=== PATIENT | male | born 1950 ===

== ENCOUNTER 2023-07-24 10:45 | Inpatient (IN) | payer OTHER ==
[2023-07-29] MEDS ORDERED: CEFTRIAXONE SODIUM 2,000 MG VIAL ONE (09:42)
[2023-07-29] MEDS ORDERED: METRONIDAZOLE/SODIUM CHLORIDE 500 MG/100 ML PIGGYBACK IV ONE (09:42)
[2023-07-29] MEDS ORDERED: METRONIDAZOLE/SODIUM CHLORIDE 200 ML IV ONE (11:00)
[2023-07-29] MEDS ORDERED: CEFTRIAXONE SODIUM 2,000 MG in 0.9 % SODIUM CHLORIDE 50 ML IV ONE (11:00)
[2023-07-29] MEDS ORDERED: OxyCODONE HCL 5 MG TABLET (ROXICODONE) PO PRN (12:15)
[2023-07-29] MEDS ORDERED: INSULIN LISPRO 1,000 UNIT/10 ML UNITS SUBCUTANEO PRN (12:15)
[2023-07-29] MEDS ORDERED: MORPHINE SULFATE 4 MG/ML CARTRIDGE IV PRN (12:15)
[2023-07-29] MEDS ORDERED: RINGERS SOLUTION,LACTATED 1,000 ML IV SCH (12:15)
[2023-07-29] MEDS ORDERED: DEXTROSE 50 % IN WATER 0.5 G/ML DISP.SYRIN IV PRN (12:15)
[2023-07-29] MEDS ORDERED: ONDANSETRON HCL 2 MG/ML VIAL IV PRN (12:15)
[2023-07-29] MEDS ORDERED: ONDANSETRON HCL 2 MG/ML VIAL ONE (12:56)
[2023-07-29] MEDS ORDERED: HYOSCYAMINE SULFATE 0.125 MG TAB.SUBL SL SCH (13:00)
[2023-07-29] MEDS ORDERED: ENALAPRILAT DIHYDRATE 1.25 MG/ML VIAL IV ONE ×2 (13:46→14:20)
[2023-07-29] MEDS ORDERED: ACETAMINOPHEN 500 MG GEL..CAP PO SCH (14:00)
[2023-07-29] MEDS ORDERED: ENALAPRILAT DIHYDRATE 1.25 MG/ML VIAL IV PRN (14:30)
[2023-07-29 16:30] LABS: HEMATOCRIT 52.5 % (39.0-48.0); MEAN CELL VOLUME 97.2 fL (80.0-100.00); MEAN CORPUSCULAR HEMOGLOBIN 33.3 pg (27.00-32.0); MEAN CORPUSCULAR HGB CONC 34.3 g/dl (32.0-36.0); PLATELET COUNT 206 K/uL (150-450); RED CELL DISTRIBUTION WIDTH 14.7 % (11.5-14.5)
[2023-07-29 16:39] LABS: ALBUMIN 3.8 gm/dL (3.4-5.0); CALCIUM 9.1 mg/dL (8.5-10.1); CREATININE SERUM 0.87 mg/dL (0.70-1.30); GFR 86.5; PHOSPHOROUS 2.8 mg/dL (2.5-4.9); POTASSIUM 3.76 mEq/L (3.5-5.1)
[2023-07-29] MEDS ORDERED: POLYETHYLENE GLYCOL 3350 17 GM BLIST.PACK PO SCH (17:00)
[2023-07-29] MEDS ORDERED: GABAPENTIN 300 MG CAPSULE PO SCH (17:00)
[2023-07-29] MEDS ORDERED: HYOSCYAMINE SULFATE 0.125 MG TAB.SUBL ONE (17:07)
[2023-07-29] MEDS ORDERED: GABAPENTIN 300 MG CAPSULE PO ONE (17:07)
[2023-07-29] MEDS ORDERED: CELECOXIB 200 MG CAPSULE PO SCH (21:00)
[2023-07-29] MEDS ORDERED: FAMOTIDINE/PF 20 MG/2 ML VIAL IV PUSH SCH (21:00)
[2023-07-29] MEDS ORDERED: FAMOTIDINE/PF 20 MG/2 ML VIAL ONE (21:12)
[2023-07-29 23:32] LABS: ABG PH 7.402 (7.35-7.45); ABG pCO2 36.2 mmHg (35-45)
[2023-07-29 23:33] LABS: ABG PO2 150.1 mmHg (80-100); BASE EXCESS -2.1 mmol/l; SaO2 99.3 %; Tco2 23.1 mmol/l
[2023-07-29 23:34] LABS: allen test SATISFACTORY; o2 44 %; puncture site RADIAL RIGHT
[2023-07-30 07:01] LABS: ALBUMIN 3.2 gm/dL (3.4-5.0); CALCIUM 8.8 mg/dL (8.5-10.1); CREATININE SERUM 0.7 mg/dL (0.70-1.30); GFR 111.17; MAGNESIUM 2.1 mg/dL (1.8-2.4); PHOSPHOROUS 2.8 mg/dL (2.5-4.9); POTASSIUM 3.7 mEq/L (3.5-5.1)
[2023-07-30 07:40] LABS: HEMATOCRIT 49.9 % (39.0-48.0); HEMOGLOBIN 17.4 g/dL (13-16.00); MEAN CELL VOLUME 95.9 fL (80.0-100.00); MEAN CORPUSCULAR HEMOGLOBIN 33.4 pg (27.00-32.0); MEAN CORPUSCULAR HGB CONC 34.8 g/dl (32.0-36.0); PLATELET COUNT 183 K/uL (150-450); RED CELL DISTRIBUTION WIDTH 14.9 % (11.5-14.5)
[2023-07-30] MEDS ORDERED: TAMSULOSIN HCL 0.4 MG CAP PO SCH ×2 (16:00→21:00)
[2023-07-30] MEDS ORDERED: ENOXAPARIN SODIUM 40 MG/0.4 ML SYRINGE SUBCUTANEO SCH (17:00)
[2023-07-31 05:42] LABS: HEMATOCRIT 48.4 % (39.0-48.0); MEAN CELL VOLUME 96.4 fL (80.0-100.00); MEAN CORPUSCULAR HEMOGLOBIN 33.8 pg (27.00-32.0); PLATELET COUNT 174 K/uL (150-450); RED BLOOD COUNT 5.02 M/uL (4.00-6.00); RED CELL DISTRIBUTION WIDTH 14.2 % (11.5-14.5)
[2023-07-31 06:01] LABS: CALCIUM 8.8 mg/dL (8.5-10.1); CREATININE SERUM 0.72 mg/dL (0.70-1.30); GFR 107.61; MAGNESIUM 2.3 mg/dL (1.8-2.4); PHOSPHOROUS 2.2 mg/dL (2.5-4.9); POTASSIUM 3.74 mEq/L (3.5-5.1)
[2023-07-31] MEDS ORDERED: POTASSIUM PHOS,M-BASIC-D-BASIC 3 MM/ML VIAL IV ONE (07:45)
[2023-07-31] MEDS ORDERED: ENOXAPARIN SODIUM 40 MG/0.4 ML SYRINGE SUBCUTANEO SCH (09:00)
[2023-08-01 12:33] LABS: HEMATOCRIT 49.3 % (39.0-48.0); MEAN CELL VOLUME 96.6 fL (80.0-100.00); PLATELET COUNT 201 K/uL (150-450); RED CELL DISTRIBUTION WIDTH 14.3 % (11.5-14.5)
[2023-08-01 12:38] LABS: HEMOGLOBIN 17.2 g/dL (13-16.00); MEAN CORPUSCULAR HEMOGLOBIN 33.7 pg (27.00-32.0)
[2023-08-02] MEDS ORDERED: HYOSCYAMINE0.125 M1 SL (14:25)
[2023-08-02] MEDS ORDERED: PEPCID AC20 MG PO (14:26)
[2023-08-02] MEDS ORDERED: TRAM1TAB98 PO (14:26)
== END 2023-08-02 15:10 | disposition home or self-care (01) | DRG 331 ==
LOC: SURH 07-29 06:30 → O/R 07-29 06:30 → SURH 07-29 10:30 → O/R 07-30 13:28 → SURH 07-30 13:29
PROVIDERS: Internal Medicine Geriatric Medicine; ADMIT Surgery; ATTEND Surgery
PROC: 07BB4ZZ Excision of Mesenteric Lymphatic, Percutaneous Endoscopic Approach (ICD-10-PCS; 2023-07-29)
PROC: 0WQF4ZZ Repair Abdominal Wall, Percutaneous Endoscopic Approach (ICD-10-PCS; 2023-07-29)
PROC: 0DTF4ZZ Resection of Right Large Intestine, Percutaneous Endoscopic Approach (ICD-10-PCS; principal; 2023-07-29 10:30)
PROC: 4A12X4Z Monitoring of Cardiac Electrical Activity, External Approach (ICD-10-PCS; 2023-07-30)
DX: D12.0 Benign neoplasm of cecum (principal); R59.0 Localized enlarged lymph nodes; K42.9 Umbilical hernia without obstruction or gangrene; I10 Essential (primary) hypertension; G47.30 Sleep apnea, unspecified; D75.1 Secondary polycythemia